=== PATIENT | female | born 1990 | race Two or more races ===

== ENCOUNTER → 2024-03-27 14:15 | Outpatient (CLI) | payer OTHER ==
[~2024-03-27 14:15] MED LIST: AMOXICILLIN500 M1 PO; DOLOGEN CAPLET1 TAB PO
== END | disposition home or self-care (01) ==
LOC: PRENATAL 14:15
PROVIDERS: ATTEND Obstetrics & Gynecology Maternal & Fetal Medicine
DX: O26.843 Uterine size-date discrepancy, third trimester (principal); O24.419 Gestational diabetes mellitus in pregnancy, unspecified control; O36.8130 Decreased fetal movements, third trimester, not applicable or unspecified; Z3A.32 32 weeks gestation of pregnancy

== ENCOUNTER → 2024-04-24 10:22 | Outpatient (CLI) | payer OTHER | END | disposition home or self-care (01) | LOC: PRENATAL 10:22 | PROVIDERS: ATTEND Obstetrics & Gynecology Maternal & Fetal Medicine | DX: O26.843 Uterine size-date discrepancy, third trimester (principal); O24.419 Gestational diabetes mellitus in pregnancy, unspecified control; O36.8130 Decreased fetal movements, third trimester, not applicable or unspecified; Z3A.36 36 weeks gestation of pregnancy ==

== ENCOUNTER 2024-05-16 06:26 | Inpatient (IN) | payer OTHER ==
[~2024-05-16] VITALS: Ht 172.7 cm; Wt 81.6 kg
[2024-05-16 06:54] VITALS: BP 100/61; BP 107/71
[2024-05-16 08:07] VITALS: BP 107/71
[2024-05-16] MEDS ORDERED: PRENATAL TABLE1 EAC4 (08:52)
[2024-05-16 08:58] LABS: HEMATOCRIT 37.8 % (36.0-45.00); HEMOGLOBIN 12.9 g/dL (12.0-15.00); MEAN CELL VOLUME 91.6 fL (80.00-100.00); MEAN CORPUSCULAR HEMOGLOBIN 31.4 pg (27.00-32.0); MEAN CORPUSCULAR HGB CONC 34.2 g/dl (32.0-36.0); PLATELET COUNT 147 K/uL (150-450); RED BLOOD COUNT 4.13 M/uL (4.00-6.00); RED CELL DISTRIBUTION WIDTH 13.6 % (11.5-14.5)
[2024-05-16 08:59] LABS: PH,URINE 6.5 (5.0-8.0); URINE APPEARANCE Cloudy; URINE BILIRRUBIN Negative (NEGATIVE); URINE BLOOD Negative; URINE COLOR Yellow; URINE GLUCOSE Negative (NEGATIVE); URINE KETONE Negative (NEGATIVE); URINE LEUKOCYTE Moderate; URINE NITRATE Negative; URINE PROTEIN Trace (NEGATIVE); URINE UROBILINOGEN 0.2 E.U./dl
[2024-05-16 09:02] LABS: URINE BACTERIA 1150.2 uL (0.0-1933); URINE EPITHELIAL CELLS 45.9 uL (0.0-38.8); URINE RBC 4.4 uL (0.0-20.8); URINE WBC 73.2 uL (0.0-23.2)
[2024-05-16 09:15] LABS: URINE CAST 0.15 uL (0.0-1.40)
[2024-05-16 09:16] LABS: URINE CRYSTALS MANY /HPF
[2024-05-16 09:32] LABS: INR 0.98; PARTIAL THROMBOPLASTIN TIME 27.9 SECONDS (22.0-34.0); PROTHROMBIN TIME 10.7 SECONDS (9.0-11.5)
[2024-05-16 09:35] LABS: CALCIUM 9.2 mg/dL (8.5-10.1); CREATININE SERUM 0.63 mg/dL (0.55-1.02); GFR 110.22; POTASSIUM 3.87 mEq/L (3.5-5.1)
[2024-05-16] MEDS ORDERED: RINGERS SOLUTION,LACTATED 1,000 ML IV SCH (10:15)
[2024-05-16] MEDS ORDERED: MISOPROSTOL 25 MCG/4 ML GEL.W.APPL ONE (10:27)
[2024-05-16] MEDS ORDERED: MISOPROSTOL 25 MCG/4 ML GEL.W.APPL VAG STA (10:31)
[2024-05-16 12:02] VITALS: BP 112/66
[2024-05-16 15:25] VITALS: BP 109/58
[2024-05-16] MEDS ORDERED: OXYTOCIN 500 ML IV SCH (16:15)
[2024-05-16 19:58] VITALS: BP 121/66
[2024-05-16] MEDS ORDERED: MORPHINE SULFATE 4 MG/ML VIAL IV STA (21:24)
[2024-05-16] MEDS ORDERED: OXYTOCIN 20 UNITS/1000ML RL PIGGYBAG IV ONE (21:42)
[2024-05-16] MEDS ORDERED: ERYTHROMYCIN BASE OPHT 1GM EACH TUBE OP ONE (21:42)
[2024-05-16] MEDS ORDERED: CHLORHEXIDINE GLUCONATE 120 ML BOTTLE TOP ONE (21:43)
[2024-05-17] VITALS (8 sets, daily range): BP systolic 108–120; BP diastolic 61–78
[2024-05-17] MEDS ORDERED: OXYTOCIN 10 UNITS/ML VIAL IM STA (01:01)
[2024-05-17] MEDS ORDERED: CHLORHEXIDINE GLUCONATE 120 ML BOTTLE TOP SCH (01:15)
[2024-05-17] MEDS ORDERED: IBUprofen 400 MG TABLET PO PRN (01:15)
[2024-05-17] MEDS ORDERED: OXYTOCIN 1,000 ML IV SCH (01:15)
[2024-05-17] MEDS ORDERED: LIDOCAINE HCL 1% 10ML VIAL IJ ONE (02:00)
[2024-05-17] MEDS ORDERED: ERYTHROMYCIN BASE OPHT 1GM EACH TUBE OP ONE (05:45)
[2024-05-17 07:53] LABS: HEMATOCRIT 34.1 % (36.0-45.00); HEMOGLOBIN 11.6 g/dL (12.0-15.00); MEAN CELL VOLUME 92.9 fL (80.00-100.00); MEAN CORPUSCULAR HEMOGLOBIN 31.7 pg (27.00-32.0); MEAN CORPUSCULAR HGB CONC 34.1 g/dl (32.0-36.0); PLATELET COUNT 133 K/uL (150-450); RED BLOOD COUNT 3.68 M/uL (4.00-6.00); RED CELL DISTRIBUTION WIDTH 13.3 % (11.5-14.5)
[2024-05-17] MEDS ORDERED: DOCUSATE SODIUM 100MG CAP PO SCH (09:00)
[2024-05-18 01:38] VITALS: BP 100/60
[2024-05-18 09:55] VITALS: BP 125/83
[2024-05-18 16:45] VITALS: BP 11/74
[2024-05-19 01:49] VITALS: BP 111/70
[2024-05-19 08:00] VITALS: BP 111/75
== END 2024-05-19 11:44 | disposition home or self-care (01) | DRG 807 ==
LOC: LDR 06:26 → OB/GYN 05-17 01:09
PROVIDERS: ADMIT Obstetrics & Gynecology; ATTEND Obstetrics & Gynecology
PROC: 3E0P7VZ Introduction of Hormone into Female Reproductive, Via Natural or Artificial Opening (ICD-10-PCS; 2024-05-16)
PROC: 4A1HXCZ Monitoring of Products of Conception, Cardiac Rate, External Approach (ICD-10-PCS; 2024-05-16)
PROC: 10E0XZZ Delivery of Products of Conception, External Approach (ICD-10-PCS; principal; 2024-05-17)
PROC: 0KQM0ZZ Repair Perineum Muscle, Open Approach (ICD-10-PCS; 2024-05-17)
PROC: 3E033VJ Introduction of Other Hormone into Peripheral Vein, Percutaneous Approach (ICD-10-PCS; 2024-05-17)
DX: O70.1 Second degree perineal laceration during delivery (principal); Z37.0 Single live birth; O24.420 Gestational diabetes mellitus in childbirth, diet controlled; Z3A.39 39 weeks gestation of pregnancy; Z20.822 Contact with and (suspected) exposure to COVID-19